=== PATIENT | male | born 1995 ===

== ENCOUNTER 2019-12-31 12:29 | Outpatient (REF) | payer MEDICAID, SELFPAY ==
[2019-12-31 21:50] LABS: Calculated LDL 124 mg/dL (<100); Cholesterol 171 mg/dL (<200); Glucose 89 mg/dL (74-106); HDL Cholesterol 36 mg/dL (40-60); TSH 0.51 uIU/mL (0.36-3.74); Triglyceride 57 mg/dL (<150)
== END 2019-12-31 12:49 ==
LOC: NCHCN 12:29
PROVIDERS: PCP Nurse Practitioner Family; Visit Provider Nurse Practitioner Family
DX: Z83.2 Family history of diseases of the blood and blood-forming organs and certain disorders involving the immune mechanism (principal); Z83.3 Family history of diabetes mellitus; Z82.49 Family history of ischemic heart disease and other diseases of the circulatory system
CPT/HCPCS: 80061; 82947; 84443